=== PATIENT | female | born 1995 | race Caucasian/White ===

== ENCOUNTER → 2017-06-27 | Outpatient (CLI) | payer OTHER | LOC: FIMAGING 08:56 | PROVIDERS: ATTEND Family Medicine | DX: M54.9 Dorsalgia, unspecified (principal) ==

== ENCOUNTER → 2018-01-06 | Outpatient (CLI) | payer OTHER | LOC: FIMAGING 16:37 | DX: Z30.431 Encounter for routine checking of intrauterine contraceptive device (principal) ==